=== PATIENT | male | born 1995 | race Caucasian/White ===

== ENCOUNTER 2022-05-24 14:43 | Emergency (ER) | payer MEDICAID, SELFPAY ==
[2022-05-24 14:49] VITALS: BP 119/78; PULSE 67; RESP 18; TEMP 36.9; O2SAT 98
--- NOTE | 2022-05-24 15:48 | ED.GENADUL_ITS ---
Discharge Plan Disposition Patient Disposition: ELOPED Condition: Stable Discharge Details Chief Complaint: Orthopedic Clinical Impression: Traumatic ecchymosis of right lower leg Primary Care Provider: Himanshu Enrique ED Provider: Francia Pederson Home Meds and New Rx's Prescriptions: No Action No Known Home Meds Discharge Data Discharge Date/Time-TO BE ENTERED AT DEPARTURE: 05/24/22 14:54 Medical Decision Making 26-year-old male presents with right lower leg pain and bruising since a fall while playing softball 5 days ago in which he hit his right lower leg with his left foot cleat. States the bruising progressed down his lower leg today after wearing a Velcro pad while working outside. Patient has mild edema and scattered ecchymosis to his right anterior lower leg extending from proximal to distal. There is no right calf tenderness. No significant pain with range of motion in his right knee or ankle. He is neurovascularly intact. Discussed with patient that his bruising has likely spread distally secondary to movement of the ecchymosis and hematoma with placement of a pad to his lower leg today. History and presentation does not appear consistent with DVT. No signs of compartment syndrome. Do not suspect fracture as he has been ambulating on his leg for the past 5 days and pain is improving. Right tib-fib x-ray ordered but patient eloped before going to xray stating he had places to be. Medical Records Medical records reviewed: Yes I reviewed the patient's medical records. HPI General Mode of arrival: ambulatory . Date/Time Provider Initiated Documentation: 05/24/22 14:53 . Limitations to Documentation: no limitations . Information obtained by: patient . HPI Narrative: Patient is a 26-year-old male who presents with right leg injury after he scraped his right leg with the cleat on his left foot while playing softball 5 days ago. Patient states he was sliding when his left cleat skidded down the front part of his right lower leg. He states he developed bruising and pain in the area since then but states the pain has been improving. He states today he had a pad with Velcro wrapped around his right lower leg while he was working outside and when he removed the pad he noticed the bruising had spread down to his distal right lower leg. He denies any significant increase in pain. He denies any significant right knee or ankle pain. He has not taken any medication for pain. Related Data Home Medications Medication Instructions Recorded Confirmed Unknown [No Known Home Meds] 05/25/22 05/25/22 Allergies Allergy/AdvReac Type Severity Reaction Status Date / Time No Known Allergies Allergy Unverified 05/25/22 21:36 General Stated Complaint: Orthopedic MARCUS: 4 Review of Systems All systems reviewed & are unremarkable except as noted in HPI and below Constitutional Constitutional: Reports as per HPI, Denies chills and Denies fever(s) Eyes Eyes: Denies blurry vision ENT Ears, Nose, Mouth, and Throat: Denies dizziness, Denies sore throat and Denies throat swelling Cardiovascular Cardiovascular: Denies chest pain and Denies dyspnea Respiratory Respiratory: Denies cough and Denies dyspnea Gastrointestinal Gastrointestinal: Denies abdominal pain, Denies diarrhea and Denies vomiting Genitourinary Genitourinary: Denies hematuria and Denies dysuria Musculoskeletal Musculoskeletal: Denies back pain and Denies numbness Integumentary/Breasts Skin/Breast: Denies lesions and Denies rash Neurologic Neurologic: Denies dizziness, Denies localized weakness and Denies numbness Allergic/Immunologic Allergic/Immunologic: Denies throat swelling PFSH All Active Problems (Updated 05/30/22 @ 08:38 by Francia Pederson DO) Traumatic ecchymosis of right lower leg (Acute) Medical History No significant past medical history Surgical History No significant past surgical history Social History Smoking/Tobacco Use Status: Never Smoking risk assessment performed?: Yes Alcohol Intake: current Alcohol Intake frequency: holidays/special occasions only Alcohol type: beer and wine Drug use: Never Substance use type: does not use Do you feel safe at home: Yes Do you feel safe in your relationship?: Yes Exam Const General: cooperative, healthy appearing and no acute distress Orientation: alert, awake and oriented x3 HENMT Head: normal to inspection Mouth: oral mucosae normal Eyes General: appearance normal, both eyes and all related structures Neck Neck: normal visual inspection Resp Effort & Inspection: normal respiratory effort and able to speak in complete sentences Cardio Rate: regular rate Skin General skin exam: no rashes or lesions noted Neuro General: patient alert, patient awake and patient oriented x3 Motor: muscle tone normal throughout Extrem Ankle/foot/toe images: 1. Ecchymoses noted to right anterior lower leg extending from proximal to distal aspect. There is mild edema and tenderness to palpation. There is no crepitus, erythema or lacerations. Compartments soft. No calf tenderness. No p ain with range or motion or tenderness to palpation of right knee, ankle or foot. Right DP/PT pulses intact. Psych Appearance: grossly normal Affect: normal affect Course Vital Signs Vital signs: Vital Signs Temperature 98.4 F 05/24/22 14:49 Pulse 67 05/24/22 14:49 Respiratory Rate 18 05/24/22 14:49 Blood Pressure 119/78 05/24/22 14:49 Pulse Oximetry 98 05/24/22 14:49 Temperature 98.4 F 05/24/22 14:49 Temperature Source Temporal Artery Scan 05/24/22 14:49 Pulse 67 05/24/22 14:49 Respiratory Rate 18 05/24/22 14:49 Respiratory Effort Non-Labored 05/24/22 14:52 Blood Pressure 119/78 05/24/22 14:49 Blood Pressure Position Sitting 05/24/22 14:49 Pulse Oximetry 98 05/24/22 14:49 Oxygen Delivery Method Room Air 05/24/22 14:49 Oxygen Flow Rate 0 05/24/22 14:49 Pain Level 0 05/24/22 14:49
--- NOTE | 2022-05-24 15:54 | NUR.NOTE ---
Nursing Note: Per Sh[facility] in [facility] patient stated to her that he had somewhere to be and he left prior to his xray.
== END 2022-05-24 14:54 ==
PROVIDERS: Emergency Provider Physician Assistant; PCP Physician Assistant Medical
DX: S80.11XA Contusion of right lower leg, initial encounter (principal); Z53.20 Procedure and treatment not carried out because of patient's decision for unspecified reasons; W19.XXXA Unspecified fall, initial encounter; Y93.64 Activity, baseball
CPT/HCPCS: 99281; 99282

== ENCOUNTER 2022-05-25 21:15 | Emergency (ER) | payer MEDICAID, SELFPAY ==
[2022-05-25 21:33] VITALS: BP 113/73; PULSE 56; RESP 18; TEMP 36.4; O2SAT 99
--- NOTE | 2022-05-25 21:45 | DI.RAD_ITS ---
Exam(s) XR TIB/FIB RT EXAM: XR TIB/FIB RT CLINICAL HISTORY: mid shaft tib pain after trauma to that area. TECHNIQUE: 2D digital imaging was performed of the right tibia and fibula. Three images were obtaine d. AP and lateral views were obtained. COMPARISON: No exams were available for comparison FINDINGS: BONES: No acute fracture is present. No bony destructive lesion is seen. Visualized portion of knee a nd ankle joints are unremarkable. SOFT TISSUE: Normal. IMPRESSION: Unremarkable radiographs of the right tibia and fibula. DATA REPOSITORY: RADIATION DOSE DELIVERED:
--- NOTE | 2022-05-25 22:10 | DI.VRAD_ITS ---
PROCEDURE INFORMATION: Exam: XR Right Tibia and Fibula Exam date and time: 05/25/2022 9:55 PM Age: 26 years old Clinical indication: Injury or trauma; Fall; Blunt trauma; Lower leg; Right; Injury date: 05/25/22; Injury details: Mid shaft tib pain after trauma to that area TECHNIQUE: Imaging protocol: Radiologic exam of the Right tibia and fibula. Views: 2 views. COMPARISON: No relevant prior studies available. FINDINGS: Bones/joints: Normal. Soft tissues: Normal. IMPRESSION: No acute findings. Dictated and Authenticated by: Ld Massey MD. Ordering:ESTEVAN Clemens MD
--- NOTE | 2022-05-25 22:31 | W.ED.GENAD ---
Discharge Plan Disposition Patient Disposition: HOME Condition: Good Discharge Details Clinical Impression: Traumatic ecchymosis of right lower leg Primary Care Provider: Himanshu Enrique ED Provider: Sarath Andrade Home Meds and New Rx's Prescriptions: No Action No Known Home Meds Discharge Instructions Instructions: R.I.C.E. Treatment (ED) Additional Instructions: At this time the x-ray shows no evidence of fracture per the radiologist. I suspect that what happened was you ruptured small vessel which caused the bleeding and then subsequent bruising. The limited bedside ultrasound did not show any evidence of clots. If you demonstrate worsening symptoms, worsening swelling, any of the fluid collections that we talked about or any other concerning symptoms it would be appropriate to come back for formal ultrasonography. In the meantime please take Tylenol and Motrin as needed for pain. Ice the area, wear compression socks up to your knee, and avoid any of the normal activity that you do a tree climbing that would cause direct pressure onto the tender area. If you notice any worsening of your symptoms, or any new symptoms such as vomiting, diarrhea, fever, chills, shortness of breath, chest pain, numbness, weakness, or fainting , please return immediately to the emergency department for reevaluation. Please follow up with your primary care provider as soon as possible for reassessment and reevaluation. As always, it was a pleasure participating in your medical care today. Referrals: Himanshu Enrique [Primary Care Provider] - Medical Decision Making 26-year-old male with no significant past medical history who presents today for evaluation of trauma to his right lower leg. Patient was playing baseball 1 week ago, when he slid and his cleat hit the medial aspect of his right calf. He had mild pain tenderness swelling and bruising at that time, but he was able to walk and still function very well. 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 Since then he has had worsening pain, and slight worsening swelling and tenderness. He denies fever or chills. No cough or shortness of breath. He has been taking some NSAIDs which helped minimally. No other complaints at this time. No numbness or tingling or weakness otherwise. No history of blood clots. Exam demonstrates right lower extremity with evidence of mild bruising throughout, primarily over the mid tibia/fibular region. Mild tenderness of the medial aspect of the tibia on palpation. No significant swelling or edema. No evidence of bony deformity, or vascular or neurologic compromise. No strength deficits. Limited bedside ultrasound demonstrates good compressibility of all the deep veins of the lower extremity, no evidence of clot in the superficial veins either. There is a very small amount of cobblestoning noted in some of the subcutaneous tissues of the medial aspect of the calf, but no evidence of abscess, large fluid collection, seroma, or hematoma otherwise. X-ray was performed and is negative for acute process. Symptoms consistent with with sprain, bruise, which was likely then worsened by the use of the tree climbing clamps. Recommend avoidance of this for the next week and a slow gradual transition back towards normal. Discussed red flags which to return including signs or symptoms that may represent DVT, blood clot, or cellulitis. I have extensively reviewed the treatment plan and discharge instructions with the patient. I have addressed all patient concerns at this time. The patient was made aware of what symptoms to monitor for that would warrant a return to the emergency department. Discussed the plan with the patient, they demonstrate verbal understanding and agreement with our assessment and plan at this time. The documentation in this chart was dictated using [employer] dictation software. Please excuse any dictation errors. Bones/joints: Normal. Soft tissues: Normal. IMPRESSION: No acute findings. Thank you for allowing us to participate in the care of your patient. Dictated and Authenticated by: Ld Massey MD 05/25/2022 10:09 PM Eastern Time ([place] & [place]) HPI General Date/Time Provider Initiated Documentation: 05/25/22 21:16. HPI Narrative: 26-year-old male with no significant past medical history who presents today for evaluation of trauma to his right lower leg. Patient was playing baseball 1 week ago, when he slid and his cleat hit the medial aspect of his right calf. He had mild pain tenderness swelling and bruising at that time, but he was able to walk and still function very well. 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 Since then he has had worsening pain, and slight worsening swelling and tenderness. He denies fever or chills. No cough or shortness of breath. He has been taking some NSAIDs which helped minimally. No other complaints at this time. No numbness or tingling or weakness otherwise. No history of blood clots. Related Data Home Medications Medication Instructions Recorded Confirmed Unknown [No Known Home Meds] 05/25/22 05/25/22 Allergies Allergy/AdvReac Type Severity Reaction Status Date / Time No Known Allergies Allergy Unverified 05/25/22 21:36 General Stated Complaint: Orthopedic MARCUS: 4 Review of Systems All systems reviewed & are unremarkable except as noted in HPI and below PFSH All Active Problems Traumatic ecchymosis of right lower leg (Acute) Medical History No significant past medical history Surgical History No significant past surgical history Social History Smoking/Tobacco Use Status: Never Smoking risk assessment performed?: Yes Alcohol Intake: current Alcohol Intake frequency: holidays/special occasions only Alcohol type: beer and wine Drug use: Never Substance use type: does not use Do you feel safe at home: Yes Do you feel safe in your relationship?: Yes Exam Narrative Exam Narrative: 1.Const: Well-nourished, Well-developed, appearing stated age 2.Eyes: PERRL, no conjunctival injection, and symmetrical lids. 3.ENT: Atraumatic external nose and ears. Moist MM. Neck: Symmetric, trachea midline, No thyromegaly. 4.CVS: +S1/S2, No murmurs or gallops. Peripheral pulses 2+ and equal in all extremities. Brisk capillary refill in all extremities. 5.RESP: Unlabored respiratory effort. Clear to auscultation bilaterally. No wheezes rales or rhonchi 6.GI: Soft, Nontender/Nondistended, No hepatosplenomegaly. No guarding or rebound. 7.MSK: Normocephalic, Extremities w/o deformity, No cyanosis or clubbing, Normal movement of all extremities. Right alcala and calf demonstrates mild bruising throughout, mild tenderness at the mid shaft of the tibia on the medial aspect. Patient demonstrates good plantar flexion and dorsiflexion of the foot, good eversion and inversion. No neurologic deficits. Brisk capillary refill, dorsalis pedis and posterior pulses +2 bilaterally. Minimal trace edema of the right lower extremity, only in the area of bruising. No significant knee tenderness. No pain in the knee with flexion or extension. 8.Skin: Warm, Dry. Mild bruising in the right lower extremity, but no evidence of fluctuance, abscess, redness, or warmth to suggest infection. No skin breakdown. 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 Sensation grossly intact, no focal neurologic deficits. 10.Psych: (AAO) x3. Appropriate mood and affect Course Vital Signs Vital signs: Vital Signs Temperature 36.4 C L 05/25/22 21:33 Pulse 56 L 05/25/22 21:33 Respiratory Rate 18 05/25/22 21:33 Blood Pressure 113/73 05/25/22 21:33 Pulse Oximetry 99 05/25/22 21:33 Temperature 36.4 C L 05/25/22 21:33 Temperature Source Tympanic 05/25/22 21:33 Pulse 56 L 05/25/22 21:33 Respiratory Rate 18 05/25/22 21:33 Respiratory Effort Non-Labored 05/25/22 21:37 Blood Pressure 113/73 05/25/22 21:33 Pulse Oximetry 99 05/25/22 21:33 POCUS Exam (ED) Limited Vascular Exam DATE OF EXAM: 05/25/22 TIME OF EXAM: 11:04 PROVIDER THAT PERFORMED THE STUDY: Sarath Andrade IS THIS A REPEAT STUDY: No Vascular Exam: Right lower extremity REASON FOR EXAM: Right lower extremity swelling/edema Exam Complete DIFFERENTIAL DIAGNOSES: Good flow throughout, compressibility noted throughout the deep veins and superficial vessels. No evidence of blood clot
== END 2022-05-25 22:57 | disposition home or self-care (01) ==
PROVIDERS: Emergency Provider Student in an Organized Health Care Education/Training Program; PCP Physician Assistant Medical
DX: S80.11XA Contusion of right lower leg, initial encounter (principal); X58.XXXA Exposure to other specified factors, initial encounter; Y93.64 Activity, baseball
CPT/HCPCS: 93971; 99283; 73590; 99282

== ENCOUNTER 2023-04-16 11:58 | Outpatient (CLI) | payer MEDICAID, SELFPAY ==
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
== END 2023-04-16 11:59 | disposition home or self-care (01) ==
LOC: DIORS 11:58
PROVIDERS: PCP Physician Assistant Medical; Referring Provider Physician Assistant Medical; Visit Provider Physician Assistant
DX: M79.89 Other specified soft tissue disorders; S63.284D Dislocation of proximal interphalangeal joint of right ring finger, subsequent encounter
CPT/HCPCS: 73140

== ENCOUNTER 2023-09-06 21:18 | Emergency (ER) | payer MEDICAID, SELFPAY ==
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
[2023-09-06 21:19] VITALS: BP 148/72; PULSE 65; RESP 12; TEMP 36.8; O2SAT 98
--- NOTE | 2023-09-06 21:30 | DI.CT_ITS ---
Exam(s) CT HEAD CERVICAL SPINE WO EXAM: CT HEAD CERVICAL SPINE WO CLINICAL HISTORY: trauma, head injury. TECHNIQUE: Imaging Protocol: Axial computed tomography images with coronal and sagittal reformatted images were created and reviewed COMPARISON: No exams were available for comparison FINDINGS: BRAIN: There are no skull fractures. Mucosal thickening in the left sphenoid sinus noted. Other visualized paranasal sinuses are clear. There is no evidence of intracranial hemorrhage, mass effect, or shift of midline structures. There are no extra-axial fluid collections. The ventricles are not enlarged or shifted and there is no blo od within the ventricular system nor within the basal cisterns. CERVICAL SPINE: There is no evidence of fracture nor listhesis. No significant prevertebral soft tissue swelling. There is neck flexion evident. There is no significant facet joint malalignment. No significant osseous lesions evident. IMPRESSION: No acute intracranial findings on this noninfused CT scan of the brain.Mucosal thickening evident in the left sphenoid sinus. No associated fluid level. No evidence of cervical spine fracture, malalignment, nor acute compromise of the cervical spinal can al. RADIATION DOSE DELIVERED: Total DLP DATA REPOSITORY: All CT scans at this facility are submitted to the National Radiology Data Registry (NRDR) Dose Index Registry (DIR) with the [employer] ([employer]). RADIATION OPTIMIZATION: All CT scans at this facility use at least one of these dose optimization te chniques: automated exposure control; mA and/or kV adjustment per patient size (includes targeted exa ms where dose is matched to clinical indication); or iterative reconstruction.
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
[2023-09-06 21:57] LABS: Abs Immature Grans 0.04 10^3/uL (0.0-0.06); Absolute Basophil Count 0.05 10^3/uL (0.0-0.2); Absolute Lymphocyte Count 1.94 10^3/uL (1.2-3.4); Absolute Monocyte Count 0.66 10^3/uL (0.1-0.8); Absolute Neutrophil Count 10.68 10^3/uL (1.2-6.7); Basophils % 0.4; Eosinophils % 0.7; HCT 43.3 % (40.0-50.0); HGB 14.8 g/dL (13.5-17.5); Immature Grans % 0.3; Lymphocytes % 14.4; MCH 28.7 pg (27.0-33.0); MCHC 34.2 % (32.0-36.0); MCV 84 fL (80-95); MPV 10.8 fL (8.0-11.0); Monocytes % 4.9; Neutrophils % 79.3; Platelet Count 229 10^3/uL (130-400); RBC 5.15 10^6/uL (4.36-5.78); RDW-SD 36.7 fL; WBC 13.47 10^3/uL (4.4-10.8)
[2023-09-06 21:58] LABS: Absolute Eosinophil Count 0.09 10^3/uL (0.0-0.7)
[2023-09-06] MEDS: Omnipaque 350 MG/ML 100 ML BTL IJ (22:01)
[2023-09-06] MEDS: Normal Saline Flush 10 ML SYR IVP (22:09)
[2023-09-06] MEDS: Normal Saline - Diluent 50 ML VIAL IJ (22:09)
[2023-09-06 22:12] LABS: ALT 47 U/L (16-63); AST 32 U/L (15-37); Albumin 3.9 g/dL (3.4-5.0); Alkaline Phosphatase 91 U/L (46-116); Anion Gap 5.7 mmol/L (3-11); BUN 17 mg/dL (7-18); Bilirubin, Total 0.4 mg/dL (0.2-1.0); CO2 30.3 mmol/L (21.0-32.0); CREATININE 1.2 mg/dL (0.70-1.30); Calcium 9.4 mg/dL (8.5-10.1); Chloride 102 mmol/L (98-107); Estimated GFR 83.95 (mL/min/1.73m2); Glucose 114 mg/dL (74-106); Potassium 3.7 mmol/L (3.5-5.1); Sodium 138 mmol/L (136-145); Total Protein 7.7 g/dL (6.4-8.2)
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
[2023-09-06 23:06] VITALS: BP 140/70; PULSE 64; RESP 14; O2SAT 98
--- NOTE | 2023-09-07 11:09 | ED.FU.B_ITS ---
Date of service: 09/07/23 Time of Service: 11:09 Follow Up Plan: Over read of CT imaging as interpreted by Dr. Corbin: Left lower lobe small lung contusion. I called and spoke with the patient. He notes he is sore but otherwise doing well with no respiratory issues. I discussed additional findings with the tello dao. I advise he should return immediately for any concerning shortness of breath.
== END 2023-09-06 23:07 | disposition home or self-care (01) ==
LOC: ER 23:34
PROVIDERS: Emergency Provider Nurse Practitioner Acute Care; PCP Physician Assistant Medical
DX: R07.89 Other chest pain (principal); S09.90XA Unspecified injury of head, initial encounter; S20.401A Unspecified superficial injuries of right back wall of thorax, initial encounter; S20.402A Unspecified superficial injuries of left back wall of thorax, initial encounter; V48.5XXA Car driver injured in noncollision transport accident in traffic accident, initial encounter
CPT/HCPCS: 74177; 80053; 99285; 70450; 71260; 72125; 83735; 85025; 99283; J3490

== ENCOUNTER 2024-09-28 21:09 | Emergency (ER) | payer OTHER, SELFPAY ==
[2024-09-28 21:24] VITALS: BP 125/71; PULSE 76; RESP 16; TEMP 36.9; O2SAT 98
--- NOTE | 2024-09-28 21:37 | ED.GENADUL_ITS ---
Discharge Plan Disposition Patient Disposition: Home Condition: Good Discharge Details Clinical Impression: Cellulitis of left lower extremity from knee to ankle Primary Care Provider: None,None ED Provider: Bret Macedos and New Rx's Prescriptions: New cephalexin 500 mg capsule 500 mg PO QID Qty: 36 0RF Discharge Instructions Instructions: Cellulitis (Skin Infection), Adult ED Additional Instructions: You were seen for left leg pain and swelling within evaluation that is consistent with cellulitis and soft tissue infection. You were given IV antibiotics here and will be continued on oral antibiotics every 6 hours. You should keep the leg elevated is much as possible. Care management will try to help facilitate obtaining PCP and follow-up next week. You should return to ED for any persistent spiking fevers, worsening leg pain or swelling, mental status change, generalized weakness, other concerns. Stand Alone Forms: Work Release Referrals: Care Management [Provider Group] [facility] General Mode of arrival: ambulatory . Date/Time Provider Initiated Documentation: 09/28/24 21:11 . Limitations to Documentation: no limitations . Information obtained by: patient and RN notes reviewed . HPI Narrative: Patient presents to ED with left lower extremity pain and swelling. Patient initially noticed some discomfort maybe a couple of days ago. Subsequently, today he has had significant pain and swelling between the knee and ankle anteriorly. He has developed some redness to the area. Denies any fever or chi lls and otherwise feels well. Denies any posterior left leg pain. Has no significant past medical history. Works outside [employer] for the [employer]. No recent injuries. Related Data Home Medications ?Medication ?Instructions ?Recorded ?Confirmed cephalexin 500 mg capsule 500 mg PO QID #36 caps 09/28/24 Previous Rx's ?Medication ?Instructions ?Recorded cephalexin 500 mg capsule 500 mg PO QID #36 caps 09/28/24 Allergies Allergy/AdvReac Type Severity Reaction Status Date / Time No Known Allergies Allergy Unverified 09/28/24 21:27 General Stated Complaint: [employer] MARCUS: 3 Review of Systems Narrative: Per HPI Exam Narrative Exam Narrative: Const: WDWN male in NAD. VS per triage. HEENT: NC/AT. Normal facial exam. Neck: Supple. Trachea midline. Lungs: Normal respiratory effort. Cor: RRR. Good DP pulses. Neuro: A+O x 3. Normal speech, mentation, gait. Cranial nerves II - XII grossly intact. No gross motor or sensory deficit. Ext: No C/C. LLE with marked swelling, erythema, warmth, tenderness anteriorly just below the knee down to the distal third of the alcala. Some swelling tending laterally and medially. There is no posterior leg swelling or tenderness whatsoever. Strength, sensation, pulses all intact distally. Course Vital Signs Vital signs: Vital Signs Temperature 98.4 F 09/28/24 21:24 Pulse 76 09/28/24 21:24 Respiratory Rate 16 09/28/24 21:24 Blood Pressure 125/71 09/28/24 21:24 Pulse Oximetry 98 09/28/24 21:24 Temperature 98.4 F 09/28/24 21:24 Pulse 76 09/28/24 21:24 Respiratory Rate 16 09/28/24 21:24 Blood Pressure 125/71 09/28/24 21:24 Pulse Oximetry 98 09/28/24 21:24 Pain Level 6 09/28/24 21:24 Medical Decision Making Patient presenting to ED with left lower extremity pain and swelling. Patient has erythema and warmth anteriorly. All of his pain and swelling is anterior. He has no posterior tenderness and no evidence of DVT. Symptoms most consistent with cellulitis. Neurovascular intact distally and I doubt deep infection but the leg is quite swollen. Will place IV, check labs, give 2 g of IV Ancef and obtain CT of distal left lower extremity to evaluate for possible deep infection. He is given IV ketorolac for pain. Patient's laboratory studies with a white count of 11.9. Chemistries with slightly elevated BUN to 25 and bicarb [address] scanning per radiology preliminary read with evidence of cellulitis but no abscess, fluid collection, deep infection. Patient will be continued on cephalexin every 6 hours and is given a days worth of pills here with prescription sent to his pharmacy. I recommend that he stay home from work over the next few days and keep his leg elevated. He is to alternate acetaminophen with ibuprofen for reese n. He used to have a primary care physician in [place] who is retired and since moving down to this area has not established primary care. Will refer to case management for primary care referral and follow-up preferably late next week. Return precautions provided. Lab Data Lab results reviewed: Yes I reviewed the patient's lab results. Lab results narrative: See [facility] All Active Problems (Updated 09/29/24 @ 02:47 by rBet Macedo MD) Cellulitis of left lower extremity from knee to ankle (Acute) Medical History No significant past medical history Surgical History No significant past surgical history Social History Smoking/Tobacco Use Status: Never Smoking risk assessment performed?: Yes Alcohol Intake: current Alcohol Intake frequency: holidays/special occasions only Alcohol type: beer and wine Drug use: Never Substance use type: does not use Do you feel safe at home: Yes Do you feel safe in your relationship?: Yes
[2024-09-28 21:42] VITALS: RESP 18
--- NOTE | 2024-09-28 21:45 | DI.CT_ITS ---
Exam(s) CT LOWER EXTREMITY LT W EXAM: CT LOWER EXTREMITY LT W CLINICAL HISTORY: swollen, tender, erythema anteior tib. TECHNIQUE: Imaging Protocol: Axial computed tomography images with coronal and sagittal reformatted images were created and reviewed. CONTRAST MATERIAL: Intravenous: Omnipaque 350 Contrast volume:100 ml Contrast route:IV - COMPARISON: No exams were available for comparison FINDINGS: Bones: There is no evidence of fracture or dislocation. No cellulitic or osteomyelitic changes are identified. No lytic or sclerotic lesions are identified. Joints: There is no significant joint space narrowing. No significant periarticular spurring. Soft Tissues: Soft tissue arm edema seen from the level of the patella through the distal 3rd of low er leg. No evidence of drainable abscess or fluid collection. No abnormal so soft tissue air. Vasc ulature appears normal. IMPRESSION: Findings consistent with cellulitis from the anterior knee through lower leg. No evidence of abscess or drainable fluid collection. RADIATION DOSE DELIVERED: 259.63mGy.cm Total DLP DATA REPOSITORY: All CT scans at this facility are submitted to the National Radiology Data Registry (NRDR) Dose Index Registry (DIR) with the [employer] (ACR). RADIATION OPTIMIZATION: All CT scans at this facility use at least one of these dose optimization te chniques: automated exposure control; mA and/or kV adjustment per patient size (includes targeted exa ms where dose is matched to clinical indication); or iterative reconstruction.
[2024-09-28 21:58] LABS: Abs Immature Grans 0.04 10^3/uL (0.0-0.06); Absolute Basophil Count 0.02 10^3/uL (0.0-0.2); Absolute Eosinophil Count 0.33 10^3/uL (0.0-0.7); Absolute Lymphocyte Count 2.11 10^3/uL (1.2-3.4); Absolute Monocyte Count 1.06 10^3/uL (0.1-0.8); Basophils % 0.2 %; Eosinophils % 2.8 %; HCT 41.4 % (40.0-50.0); HGB 13.8 g/dL (13.5-17.5); Immature Grans % 0.3 %; Lymphocytes % 17.8 %; MCH 29.6 pg (27.0-33.0); MCHC 33.3 % (32.0-36.0); MCV 89 fL (80-95); MPV 11.1 fL (8.0-11.0); Monocytes % 8.9 %; Platelet Count 193 10^3/uL (130-400); RBC 4.67 10^6/uL (4.36-5.78); RDW-SD 38.8 fL; WBC 11.86 10^3/uL (4.4-10.8)
[2024-09-28] MEDS: Ketorolac 15 MG/ML VIAL IVP (22:00)
[2024-09-28] MEDS: ceFAZolin 2 GM/50 ML BAG IVPB (22:00)
[2024-09-28] MEDS: Omnipaque 350 MG/ML 100 ML BTL IJ (22:04)
[2024-09-28] MEDS: Normal Saline - Diluent 50 ML VIAL IJ (22:04)
[2024-09-28 22:06] LABS: Anion Gap 3.9 mmol/L (3-11); BUN 25 mg/dL (7-18); CO2 33.1 mmol/L (21.0-32.0); CREATININE 1.3 mg/dL (0.70-1.30); Calcium 9.2 mg/dL (8.5-10.1); Chloride 105 mmol/L (98-107); Estimated GFR 75.79 (mL/min/1.73m2); Glucose 101 mg/dL (74-106); Potassium 4.1 mmol/L (3.5-5.1); Sodium 142 mmol/L (136-145)
--- NOTE | 2024-09-28 22:59 | DI.VRAD_ITS ---
PROCEDURE INFORMATION: Exam: CT Left Lower Extremity, Leg Exam date and time: 09/28/2024 22:02 Age: 29 years old Clinical indication: Other: Swollen, tender, erythema anteior tib TECHNIQUE: Imaging protocol: CT of the left lower extremity with intravenous contrast was performed. Exam focused on the lower leg. Contrast material: OMNI 350; Contrast volume: 100 ml; Contrast route: INTRAVENOUS (IV); COMPARISON: No relevant prior studies available. FINDINGS: Bones/joints: Trace knee joint fluid. No acute fracture or subluxation. Soft tissues: Infiltration of the soft tissues, prepatellar and infrapatellar spaces, extending caudally along the anterior, medial and lateral calf with skin thickening, moderate in severity, becoming mild distally; no focal fluid collection. No intramuscular collection. IMPRESSION: Anterior predominant knee and calf edema and or cellulitis without abscess. Dictated and Authenticated by: Nathalie Ochoa MD. Ordering:JAN Queen MD
[2024-09-28] MEDS: Cephalexin 500 MG CAP, 4 CAPS/BTL PO (23:15)
[2024-09-28 23:17] VITALS: BP 106/51; PULSE 72; RESP 18; TEMP 37.7; O2SAT 97
--- NOTE | 2024-09-29 11:57 | NUR.NOTE ---
Referral faxed to [facility] to establish PCP for the next available appointment, no option was given to do it electronically. Care management and [facility] office contacted, was instructed to fax paper copy. Nursing Note:
== END 2024-09-28 23:17 | disposition home or self-care (01) ==
PROVIDERS: Emergency Provider Emergency Medicine
DX: L53.9 Erythematous condition, unspecified (principal); L03.116 Cellulitis of left lower limb
CPT/HCPCS: 80048; 96374; 96375; 99285; 73701; 85025; J0690; J1885; J3490

== ENCOUNTER 2025-04-17 18:08 | Emergency (ER) | payer BC, SELFPAY ==
[2025-04-17] VITALS (7 sets, daily range): BP systolic 113–123; BP diastolic 66–74; PULSE 46–67; RESP 16–18; TEMP 36.4–36.5; O2SAT 94–99
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
--- NOTE | 2025-04-17 18:42 | W.ED.GENAD ---
Discharge Plan Disposition Patient Disposition: Home Condition: Stable Discharge Details Clinical Impression: Rhinorrhea Primary Care Provider: None,None ED Provider: Jeancarlos Quiroz Home Meds and New Rx's Prescriptions: Discontinued cephalexin 500 mg capsule 500 mg PO QID Qty: 36 0RF Discharge Instructions Additional Instructions: Your CAT scan did not show any concerning findings other than some fluid in your left sided sinuses. I had the neurosurgery team at [facility] reviewed the images and because you do not have a fracture they think it is unlikely that you have a CSF leak. We did send a sample to the [facility] lab which will take a few days for it to process to check to see if it could be CSF. Patient is a 19 he will be called if this is positive. If you feel significantly more ill, have new symptoms such as persistent vomiting or difficulty breathing return to the emergency department for reevaluation HPI General Mode of arrival: ambulatory. Date/Time Provider Initiated Documentation: 04/17/25 18:10. Limitations to Documentation: no limitations. Information obtained by: patient. History of Present Illness 29 year old M presents to the emergency department with the chief complaint of hit head, clear rhinorrhea, described as moderate, Quality is described as aching, and is localized to the head. Patient reports no radiation. Patient started experiencing this day(s) (1) and it has been constant. No relieving factors improve symptom(s), No exacerbating factors reported . Patient notes no other symptoms.. Patient did receive the following treatments prior to arrival, none Related Data Allergies Allergy/AdvReac Type Severity Reaction Status Date / Time No Known Allergies Allergy Unverified 09/28/24 21:27 General Stated Complaint: FacialProb MARCUS: 2 Review of Systems All systems reviewed & are unremarkable except as noted in HPI and below Constitutional Constitutional: Denies chills and Denies fever(s) Cardiovascular Cardiovascular: Denies chest pain and Denies dyspnea Respiratory Respiratory: Denies cough and Denies dyspnea Gastrointestinal Gastrointestinal: Denies abdominal pain, Denies nausea and Denies vomiting Integumentary/Breasts Skin/Breast: Denies rash Exam Const General: no acute distress Orientation: alert HENNY Head: no palpable skull fracture Ears: external ears normal and TM's normal bilaterally General nose exam: no nasal polyps and septum normal Mouth: moist mucous membranes Eyes General: appearance normal, both eyes and all related structures Neck Neck: normal visual inspection Resp Effort & Inspection: normal respiratory effort and able to speak in complete sentences Cardio Rate: regular rate Skin General skin exam: no rashes or lesions noted Neuro General: patient alert and patient oriented x3 Extrem General: normal to inspection Psych Mental Status: mental status grossly normal Course Vital Signs Vital signs: Vital Signs Temperature 36.4 C 04/17/25 18:17 Pulse 67 04/17/25 18:17 Respiratory Rate 18 04/17/25 18:17 Blood Pressure 113/70 04/17/25 18:17 Pulse Oximetry 94 04/17/25 18:17 Temperature 36.4 C 04/17/25 18:17 Temperature Source Oral 04/17/25 18:17 Pulse 67 04/17/25 18:17 Respiratory Rate 18 04/17/25 18:17 Blood Pressure 113/70 04/17/25 18:17 Blood Pressure Position Sitting 04/17/25 18:17 Pulse Oximetry 94 04/17/25 18:17 Oxygen Delivery Method Room Air 04/17/25 18:17 Oxygen Flow Rate 0 04/17/25 18:17 Pain Level 7 04/17/25 18:17 Medical Decision Making 2-year-old male with no significant past medical history comes in after he struck his head on a chair yesterday and has had persistent clear fluid coming out of both nares today. He says that he dropped something yesterday and he bent down quickly to grab it and hit the right forehead on a chair. He did not lose consciousness but he felt dizzy for half an hour after. Denies any vomiting. He says he went to work today and most of the day 7 to have his nose with all the fluid coming out of it. He denies any neck pain, back pain, chest pain or abdomen pain. He has a contusion over the right forehead just superior to the eyebrow. Pupils are equal and reactive to light. Is have clear rhinorrhea coming out of the nose does almost have the appearance of a halo sign will placed on a tissue paper. No neck tenderness. I suspect he could have a CSF leak. Will proceed with CT head and facial bones and reassess CT shows no obvious fracture, no acute findings other than some fluid in the left sinus. I spoke with neurosurgery at [facility] ASHU Womack. He reviewed the films in the case and without fracture connects to likely CSF leak and does not feel he requires any further monitoring or transfer. He said that we could send a sample to test for beta-2 transferrin which we will send to the lab. Patient was updated on advised he will get a call if this comes back positive next steps. Return precautions given Differential Diagnosis Differential Diagnosis: CSF leak, TBI PFSH All Active Problems (Updated 04/17/25 @ 22:12 by Jeancarlos Quiroz MD) Rhinorrhea (Acute) Medical History No significant past medical history Surgical History No significant past surgical history Social History Smoking/Tobacco Use Status: Never Smoking risk assessment performed?: Yes Alcohol Intake: current Alcohol Intake frequency: holidays/special occasions only Alcohol type: beer and wine Drug use: Never Substance use type: does not use Do you feel safe at home: Yes Do you feel safe in your relationship?: Yes
--- NOTE | 2025-04-17 19:20 | DI.VRAD_ITS ---
PROCEDURE INFORMATION: Exam: CT Head Without Contrast Exam date and time: 04/17/2025 6:56 PM Age: 29 years old Clinical indication: Injury or trauma; Other: Hit right forehead, clear rhinorrhea; Blunt trauma (contusions or hematomas); Without loss of consciousness; Injury date: 04/16/25 TECHNIQUE: Imaging protocol: Computed tomography of the head without contrast. COMPARISON: CT HEAD CERVICAL SPINE WO 09/06/2023 10:03 PM FINDINGS: Brain: Normal. No hemorrhage. Unremarkable white matter. No mass effect. Cerebral ventricles: No ventriculomegaly. Paranasal sinuses: There is nonspecific fluid within the ethmoid sinuses. Mastoid air cells: Visualized mastoid air cells are well aerated. Bones: Unremarkable. No acute fracture. Soft tissues: Unremarkable. IMPRESSION: No acute intracranial abnormality. PROCEDURE INFORMATION: Exam: CT Maxillofacial Without Contrast Exam date and time: 04/17/2025 6:56 PM Age: 29 years old Clinical indication: Injury or trauma; Other: Hit right forehead, clear rhinorrhea; Blunt trauma (contusions or hematomas); Without loss of consciousness; Injury date: 04/16/25 TECHNIQUE: Imaging protocol: Computed tomography of the face without contrast. COMPARISON: CT HEAD CERVICAL SPINE WO 09/06/2023 10:03 PM FINDINGS: Paranasal sinuses: Air-fluid level in the left maxillary sinus may represent hemorrhage Orbital cavities: Orbits are normal. Globes are unremarkable. Bones: Contour abnormalities in the nasal bones may represent prior fractures. No soft tissue swelling of the nose to suggest acute fracture Soft tissues: No soft tissue swelling IMPRESSION: No acute fracture Air-fluid level in the left maxillary sinus may represent hemorrhage Dictated and Authenticated by: Autumn Best MD. Orderin Gabriella Arshad MD
[2025-04-20 17:23] LABS: Beta-2 Transferrin, BF Negative
== END 2025-04-17 22:38 | disposition home or self-care (01) ==
PROVIDERS: Emergency Provider Emergency Medicine
DX: J34.89 Other specified disorders of nose and nasal sinuses (principal)
CPT/HCPCS: 99284; 99283; 82945; 86335; 70450; 70486

== ENCOUNTER 2025-06-01 20:35 | Emergency (ER) | payer BC, SELFPAY ==
[2025-06-01 20:38] VITALS: BP 131/81; PULSE 56; RESP 20; O2SAT 99
[2025-06-01] MEDS: Loratidine 10 MG TAB PO (21:10)
[2025-06-01] MEDS: Famotidine 20 MG TAB PO (21:10)
[2025-06-01] MEDS: predniSONE 20 MG TAB 40 MG PO (21:10)
--- NOTE | 2025-06-01 21:19 | W.ED.GENAD ---
Discharge Plan Disposition Patient Disposition: Home Condition: Stable Discharge Details Clinical Impression: Local reaction to bee sting Primary Care Provider: None,None ED Provider: Sarath Hull Home Meds and New Rx's Prescriptions: New prednisone 20 mg tablet 40 mg PO DAILY 4 Days Qty: 8 0RF Discharge Instructions Instructions: Prednisone, Insect Bites and Stings ED Additional Instructions: You were seen in the emergency department for your multiple bee stings with local reactions at each site. You need to be taking an [id number] nondrowsy antihistamine like Claritin/Margarita/Zyrtec twice daily, take Benadryl before bed 50 mg. We gave you a dose of prednisone here and I sent a prescription for 4 more days of prednisone to your pharmacy. Please return for any acute worsening of your rash, any further swelling inside your mouth especially or tongue, any wheezing, excessive drooling or reduced range of motion of jaw. Discharge Data Discharge Date/Time-TO BE ENTERED AT DEPARTURE: 06/01/25 21:27 HPI General Date/Time Provider Initiated Documentation: 06/01/25 20:42. HPI Narrative: 29 year-old male presents to ED today by POV/ambulating with a chief complaint of multiple bee stings- to hands, arms, legs, and directly to lip with onset around 1800- 2 hours ago. Quality described as mostly lip swelling, and pain consistent with past bee stings at other sites, no radiation to hives, urticaria, wheezing, worsening over the past 2 hours, nausea/vomiting, fever. Severity is described as moderate. Palliating factors include took Benadryl with some mild relief. Provoking factors include nothing specific. Events leading up to the incident/Associated Symptoms: Patient has no known severe bee sting allergy. Patient not anticoagulated. Related Data Home Medications ?Medication ?Instructions ?Recorded ?Confirmed prednisone 20 mg tablet 40 mg (2 x 20 mg) PO DAILY 4 days 06/01/25 #8 tabs Previous Rx's ?Medication ?Instructions ?Recorded prednisone 20 mg tablet 40 mg (2 x 20 mg) PO DAILY 4 days 06/01/25 #8 tabs Allergies Allergy/AdvReac Type Severity Reaction Status Date / Time No Known Allergies Allergy Unverified 06/01/25 20:40 General Stated Complaint: InsectBite MARCUS: 4 Review of Systems All systems reviewed & are unremarkable except as noted in HPI and below Exam Narrative Exam Narrative: GENERAL APPEARANCE: Well-nourished, non-toxic, awake and alert, atraumatic, no acute distress. SKIN: Warm, pink, dry, intact, multiple macular welts without hernadez erythema or fluctuant swelling to bilateral hands, arms, legs at sting sites HEAD: Normocephalic, atraumatic, normal hair distribution for gender/age. EYES: Normal conjunctiva, no exudates on lids/lashes. ENT: Nares patent, no circumoral cyanosis, L lower lip/facial swelling, no submandibular swelling NECK: Supple, trachea midline, painless cervical ROM. LUNGS/CHEST: Lungs CTA bilaterally- no wheezing, non-labored respirations, normal A/P diameter, symmetrical expansion, no chest wall deformity HEART (CV/PV): Regular rate and rhythm without murmur, no peripheral edema, no JVD. ABDOMEN: Soft, non-distended, no guarding. MSK: Normal ROM, no swelling/deformity to bilateral UEs or LEs, moving all extremities without weakness, no cyanosis, spine midline without tenderness, normal curvature. NEURO: Mental Status AAOx4 - alert to person, place, time, events No facial droop, no forehead involvement. Motor: No focal weakness - strength 5/5 in bilateral UEs and LEs, proximal and distal, symmetric. Sensory: sensation intact to light touch globally. Gait normal: patient ambulated without ataxia into ED room. PSYCH: euthymic, cooperative, pleasant, appropriate speech Course Vital Signs Vital signs: Vital Signs Pulse 56 L 06/01/25 20:38 Respiratory Rate 20 06/01/25 20:38 Blood Pressure 131/81 06/01/25 20:38 Pulse Oximetry 99 06/01/25 20:38 Pulse 56 L 06/01/25 20:38 Respiratory Rate 20 06/01/25 20:38 Blood Pressure 131/81 06/01/25 20:38 Pulse Oximetry 99 06/01/25 20:38 Oxygen Delivery Method Room Air 06/01/25 20:38 Oxygen Flow Rate 0 06/01/25 20:38 Pain Level 6 06/01/25 20:38 Medical Decision Making This dictation utilizes [id number] dictation software and may contain unedited grammatical errors. 29 year-old male presents to ED today by POV/ambulating with a chief complaint of multiple bee stings- to hands, arms, legs, and directly to lip with onset around 1800- 2 hours ago. Quality described as mostly lip swelling, and pain consistent with past bee stings at other sites, no radiation to hives, urticaria, wheezing, worsening over the past 2 hours, nausea/vomiting, fever. Severity is described as moderate. Palliating factors include took Benadryl with some mild relief. Provoking factors include nothing specific. Events leading up to the incident/Associated Symptoms: Patient has no known severe bee sting allergy. Patients' medical history: noncontributory. Family and social history: noncontributory. Pertinent exam findings / vital signs include various macular welts without urticaria to sting sites of bilateral arms, hands, legs, no erythema or focal swelling, no wheezing, left lower lip swelling, no trismus, no vocal changes, no drooling, no submandibular swelling. Differential / pathologies of concern include local reaction to bee sting. Diagnostic studies of: -None. Interventions of: -PO loratadine, famotidine, and prednisone, with continuation of prednisone 40mg QD x4d by Rx. ED Course/Assessment/Plan: 29-year-old male presents with multiple bee stings 2 hours ago without progression, got stung directly on the lip which is the most concerning area of swelling has no submandibular swelling, no wheezing, took Benadryl already, I did provide him with loratadine and famotidine as well as 5-day course of prednisone, strict return criteria for any wheezing, difficulty breathing, difficulty swallowing or increasing facial swelling despite treatment or any other emergent concerns. Findings not consistent with anaphylaxis, respiratory distress, airway compromise, lugwig's angina. Disposition of local reaction to bee sting. Patient verbalized understanding of the plan and return to ED criteria and engaged in shared decision making. Medical Records Medical records reviewed: Yes I reviewed the patient's medical records. [facility] All Active Problems (Updated 06/01/25 @ 21:20 by ASHU Valente) Local reaction to bee sting (Acute) Medical History No significant past medical history Surgical History No significant past surgical history Social History Smoking/Tobacco Use Status: Never Smoking risk assessment performed?: Yes Alcohol Intake: current Alcohol Intake frequency: holidays/special occasions only Alcohol type: beer and wine Drug use: Never Substance use type: does not use Do you feel safe at home: Yes Do you feel safe in your relationship?: Yes
[2025-06-01 21:25] VITALS: BP 114/60; PULSE 60; RESP 18; O2SAT 98
== END 2025-06-01 21:27 | disposition home or self-care (01) ==
PROVIDERS: Emergency Provider Physician Assistant
DX: T63.441A Toxic effect of venom of bees, accidental (unintentional), initial encounter (principal)
CPT/HCPCS: 99283; J7512